=== PATIENT | female | born 2005 | race Two or more races ===

== ENCOUNTER 2023-09-30 12:32 | Emergency (ER) | payer BC, OTHER, SELFPAY ==
--- NOTE | ~2023-09-30 | US_ITS ---
EXAMINATION: US right lower quadrant abdomen CLINICAL INFORMATION: Right lower quadrant pain rule out appendicitis. COMPARISON: None available at the time of this dictation. TECHNIQUE: Curvilinear transducer ultrasound utilized, area of interest scanned, abdomen right lower quadrant FINDINGS: Blind loop bowel likely appendix found in the right lower quadrant measuring 0.3 x 0.5 cm normal in diameter. No evidence of rebound tenderness to suggest appendicitis. US/US appendix IMPRESSION: * No ultrasound evidence of appendicitis. Probably a normal appendix identified. * If there is high index of suspicion for appendicitis, May consider correlation with follow-up MRI.
--- NOTE | ~2023-09-30 | US_ITS ---
EXAMINATION: US OBSTETRICAL PELVIC AND TRANSVAGINAL CLINICAL INFORMATION: Right lower quadrant abdominal and pelvic pain with nausea and vomiting. Beta-hCG of 43,719 COMPARISON: None available. LMP: Uncertain. TECHNIQUE: Real-time ultrasound scanning of the pelvis is acquired via transabdominal and transvaginal approach. FINDINGS: Uterus is anteverted. There is a single intrauterine gestational sac with visible yolk sac, embryo, and embryonic cardiac activity. There is no significant subchorionic hemorrhage or hematoma. Embryo HR: 113 beats per minute. CRL (crown rump length): 0.2 cm (5 weeks 6 days +/- 4 days). NABILA (estimated date of delivery): 05/26/2024 +/- 4 days. MATERNAL ADNEXA: The right maternal ovary measures 3.4 x 2 x 2.2 cm. Normal-appearing the right intraovarian arterial and venous blood flow is documented on spectral Doppler evaluation. The left maternal ovary measures 2.8 x 2.6 x 1.8 cm. Normal-appearing left intraovarian arterial and venous blood flow is documented on spectral Doppler evaluation. There is no significant maternal adnexal mass. No maternal pelvic ascites. US/US OB pelvic and transvaginal IMPRESSION: 1. Single intrauterine gestation with ultrasound gestational age of 5 weeks 6 days +/- 4 days. 2. Estimated date of delivery is 05/26/2024 +/- 4 days. 3. No maternal adnexal mass or pelvic ascites. 4. No sonographic evidence of active ovarian torsion. No sonographic evidence of ectopic . Recommend clinical follow-up as appropriate. Recommend follow-up ultrasound to ensure normal progression of the .
--- NOTE | ~2023-09-30 | US_ITS ---
EXAMINATION: US OBSTETRICAL PELVIC AND TRANSVAGINAL CLINICAL INFORMATION: Right lower quadrant abdominal and pelvic pain with nausea and vomiting. Beta-hCG of 43,719 COMPARISON: None available. LMP: Uncertain. TECHNIQUE: Real-time ultrasound scanning of the pelvis is acquired via transabdominal and transvaginal approach. FINDINGS: Uterus is anteverted. There is a single intrauterine gestational sac with visible yolk sac, embryo, and embryonic cardiac activity. There is no significant subchorionic hemorrhage or hematoma. Embryo HR: 113 beats per minute. CRL (crown rump length): 0.2 cm (5 weeks 6 days +/- 4 days). NABILA (estimated date of delivery): 05/26/2024 +/- 4 days. MATERNAL ADNEXA: The right maternal ovary measures 3.4 x 2 x 2.2 cm. Normal-appearing the right intraovarian arterial and venous blood flow is documented on spectral Doppler evaluation. The left maternal ovary measures 2.8 x 2.6 x 1.8 cm. Normal-appearing left intraovarian arterial and venous blood flow is documented on spectral Doppler evaluation. There is no significant maternal adnexal mass. No maternal pelvic ascites. US/US pelvic ovarian doppler IMPRESSION: 1. Single intrauterine gestation with ultrasound gestational age of 5 weeks 6 days +/- 4 days. 2. Estimated date of delivery is 05/26/2024 +/- 4 days. 3. No maternal adnexal mass or pelvic ascites. 4. No sonographic evidence of active ovarian torsion. No sonographic evidence of ectopic . Recommend clinical follow-up as appropriate. Recommend follow-up ultrasound to ensure normal progression of the .
--- NOTE | ~2023-09-30 | MR_ITS ---
EXAMINATION: MR ABDOMEN WITHOUT CONTRAST CLINICAL INFORMATION: Right lower quadrant pain. . Assess for appendicitis COMPARISON: Prior studies including the ultrasound of the appendix earlier today TECHNIQUE: MR abdomen is performed on a high-field 1.5 Yue MRI. MR compatible with marker was placed in the region the patient's pain approximately 7 cm below the umbilicus in the midline over the suprapubic region. Contrast was not utilized and the setting. Examination is tailored to evaluate the lower abdomen and pelvis. FINDINGS: LUNG BASES: The visualized lung bases are unremarkable. LIVER, GALLBLADDER, AND BILIARY TREE: The liver is normal in size, smooth in contour, and normal in signal. No focal hepatic lesion or biliary ductal dilatation is present. The gallbladder is unremarkable with no evidence of gallbladder wall thickening, or obvious pericholecystic inflammatory changes. PANCREAS: Unremarkable. SPLEEN: Visualized portion of the spleen is unremarkable ADRENAL GLANDS: Unremarkable. KIDNEYS AND URETERS: The kidneys are normal in size and shape. No hydronephrosis. No perinephric stranding. GASTROINTESTINAL TRACT: No bowel obstruction. Appendix is not able to be delineated on the study but I do not appreciate any focal inflammatory changes in the expected periappendiceal region. Normal-appearing appendix was suggested on the ultrasound from earlier today. No ascites or fluid collection. ABDOMINAL WALL: No significant hernia is appreciated. OSSEOUS STRUCTURES: Marrow signal normal. There is a convex left lumbar curve with partially visualized compensatory convex right thoracic curve. PELVIC ORGANS: The gravid uterus is anteroverted with a prominent decidual reaction as well as a T2 bright gestational sac. Fine detail was better delineated on the dedicated pelvic ultrasound from earlier today. pole is not able to be delineated on MR. There are multiple prominent transient T2 dark contractions seen. These change in morphology and location throughout the myometrium throughout the study consistent with prominent uterine contractions. MR/MR abdomen wo con IMPRESSION: 1. Appendix is not able to be delineated on the study but I do not appreciate any focal inflammatory changes in the expected periappendiceal region. 2. Gravid uterus with decidual reaction and a small T2 bright gestational sac. Fine detail was better delineated on the dedicated pelvic ultrasound from earlier today. The main finding of note is prominent transient uterine myometrial contractions seen throughout the examination. These contractions change in morphology and location within the myometrium throughout the study. These prominent contractions could be a cause of patient discomfort and the patient marked her area of pain along the anterior abdominal wall just anterior to the megha uterus.
[2023-09-30 12:47] VITALS: BP 132/92; PULSE 85; RESP 18; TEMP 36.6; O2SAT 100; BMI 17.3
--- NOTE | 2023-09-30 12:57 | ED_ITS ---
HPI - General Adult General Chief complaint: Abdominal Pain Stated complaint: Lower abd pain Time Seen by Provider: 09/30/23 12:57 Source: patient Mode of arrival: ambulatory Limitations: no limitations History of Present Illness HPI narrative: 18 year old female presents with fatigue, malaise, subjective fevers and chills, severe lower abdominal discomfort for the past 2 days worsening started as a boring pain now severe and constant. Patient reports abdominal pain is a greater than 10/10, worse on the right side she appears very uncomfortable. Not tolerating much by mouth. Patient reports this is some of the worst pain she has had. She reports irregular periods last menstrual cycle was about a month ago, not on control, does not know she is . Denies chest pain, shortness of breath, changes in urination or bowel habits. Related Data Previous Rx's Medication Instructions Recorded doxylamine 10 mg-pyridoxine (vit 1 tab PO BID PRN nausea and 09/30/23 B6) 10 mg tablet,delayed release vomiting #30 tabs (Diclegis) Allergies Allergy/AdvReac Type Severity Reaction Status Date / Time No Known Allergies Allergy Verified 09/30/23 12:43 Review of Systems 2 Review of Systems: Constitutional : No Weight loss, + Fever, + Chills, + Fatigue, + Malaise ENT/Mouth : No sore throat, No Rhinorrhea Eyes: No Eye Pain, No Swelling, No Redness Cardiovascular : No Chest Pain, No SOB, No Dyspnea on Exertion, No Orthopnea, No Edema, No Palpitations Respiratory : No Cough, No Sputum, No Wheezing Gastrointestinal : + Nausea, No Vomiting, No Diarrhea, No Constipation, + abdominal Pain, No Hematochezia, No Melena Genitourinary : No Dysuria, No Urinary Frequency, No Hematuria, Musculoskeletal : No joint pain, No Myalgias, No Joint Swelling Skin : No Skin Lesions, No rash Neuro : No Weakness, No Numbness, No Dizziness, No Headache Psych : No Anxiety/Panic, No Depression All other systems reviewed and are negative Yes all other systems are reviewed and are negative [facility] Past Medical History Attestation statement: The following information was validated with the patient. Source: old records reviewed and nursing notes reviewed Medical History No pertinent past medical history Physical Exam ED Vital Signs: Vital Signs - 24 hr 09/30/23 13:51 09/30/23 15:27 09/30/23 15:52 Temperature 98.4 F 98.3 F 98.1 F Pulse Rate 83 93 79 Respiratory Rate 16 18 16 Blood Pressure 139/89 123/87 108/88 Pulse Oximetry 96 97 97 Oxygen Delivery Method Room Air Room Air Room Air 09/30/23 18:22 Temperature Pulse Rate 68 Respiratory Rate 18 Blood Pressure 110/54 L Pulse Oximetry 100 Oxygen Delivery Method Room Air BMI result Body Mass Index 17.3 Vital signs stable Appearance: Alert.? Oriented X3.? No acute distress.? Head: Normocephalic, atraumatic, no step-offs or deformities Eyes: Pupils equal, round and reactive to light.? ENT: Pharynx normal.? Neck: Normal inspection.? Neck supple.? CVS: Normal heart rate and rhythm.? Pulses normal.? Respiratory: No respiratory distress.? Breath sounds normal.? Abdomen: Soft and significant lower abdominal tenderness to palpation however the there is diffuse tenderness with rebound. And guarding. Normoactive bowel sounds. Patient appears uncomfortable Skin: Skin warm and dry.? Normal skin color.? Normal skin turgor.? Extremities: No lower extremity edema.? No calf ttp. 5/5 strength to bilateral upper and lower extremities Back: No midline tenderness, no C-spine tenderness, full range of motion, no CVA tenderness bilaterally Neuro: Oriented X 3.? No motor deficit.? No sensory deficit. CN 2-12 intact Course Course Course Narrative: RME: 18 yold female presents to the ED for lower abdominal pain sinc yesterday with nuasea and vomitting. positive bialteral lower abdomial tenderness. patient brought to the ED immeidatley to BED 14. possible surgical belly ectopic pregancy and tubo ovaryn torsions Reevaluation(s) Reevaluation #1: CBC with leukocytosis 11.9, no left shift. Chemistry no acute electrolyte abnormalities requiring intervention lactic acid of 3.1, will give 30 cc/kilos bolus as well as ceftriaxone. Beta hCG noted to be 43,719 this is concerning for ectopic bedside ultrasound unable to visualize free fluid which lower suspicion for ruptured ectopic. Time: 14:00 Reevaluation #2: Reevaluation patient still with exquisite tenderness to RLQ + . Lactic acid improved. Spoke to both Dr. Cristiana PALACIO and my attending Dr. Ellis about this case MRI is needed at this time to ensure this is not an appendicitis causing patients pain. Patient aware of plan. MRI oncall contacted. Time: 16:57 Reevaluation #3: Sign out to Edgar DAVIES Time: 17:01 Additional Reevaluation(s): Patient received in sign-out at change of shift pending MRI which shows no evidence of focal inflammatory change around the appendix. There is no other acute pathologic findings with the exception of a megha uterus which is likely causing the patient's pain. I discussed with Dr. Zendejas who agrees with discharge the patient remains pain-free. I discussed all these findings with the patient as well. 7:30 p.m. patient passed p.o. challenge, stable for discharge. She was encouraged to return for any abnormal vaginal bleeding or worsening pain Medications Administered Discontinued Medications Generic Name Dose Route Start Last Admin Trade Name Freq PRN Reason Stop Dose Admin Sodium Chloride 1,368 mls @ 1,368 mls/hr 09/30/23 13:23 09/30/23 15:25 Ns 30 ml/kg infuse over 1 hr (1368 ml) 09/30/23 14:22 Infused IV Infusion .Q1H STA Ceftriaxone Sodium 1 gm/ 50 mls @ 100 mls/hr 09/30/23 13:23 09/30/23 14:08 Sodium Chloride IV 09/30/23 13:52 Infused ONCE ONE Infusion Morphine Sulfate 4 mg 09/30/23 13:28 09/30/23 13:38 Morphine Sulfate 4 Mg/Ml Cartridge IVPUSH 09/30/23 13:29 4 mg ONCE ONE Administration Protocol Ondansetron HCl 4 mg 09/30/23 18:47 09/30/23 18:57 Ondansetron Hcl 4 Mg/2 Ml Vial IVPUSH 09/30/23 18:48 4 mg ONCE ONE Administration Medical Decision Making Medical Decision Making [facility] Narrative: 1324 18-year-old female presents with complaints of severe lower abdominal pain for the past 2 days with associated nausea however no vomiting. Last menstrual period about a month ago has regular periods. Unclear she has preg Physical exam significant lower abdominal tenderness to palpation however the there is diffuse tenderness with rebound. And guarding. Normoactive bowel sounds. Patient appears uncomfortable Concerns for acute abdomen versus ectopic versus toward. Will rule out appendicitis, cholecystitis, kidney stone, UTI and metabolic derangements At this time infection suspected, will initiate septic protocol will obtain labs, blood cultures, lactic will give a 30 cc/kilos bolus and give ceftriaxone empirically. Differential Diagnosis Differential Diagnoses: The differential diagnosis associated with the presentation includes Concerns for acute abdomen versus ectopic versus toward. Will rule out appendicitis, cholecystitis, kidney stone, UTI and metabolic derangements Admission/Observation Consideration of admission/observation: Escalation of care including admission/observation considered Likely Consult Healthcare Provider Management of the patient was discussed with: Hospitalist and Talent Acquisition Associate Lab Data MDM Lab Attestation statement: I reviewed the patient's lab results. 09/30/23 13:33 09/30/23 13:00 Labs: Lab Results 09/30/23 09/30/23 09/30/23 Range/Units 13:00 13:33 13:55 WBC 11.9 H (4.8-10.8) X10*3/uL RBC 4.48 (4.20-5.50) X10*6/uL Hgb 12.7 (12.0-16.0) g/dl Hct 36.9 L (37.0-47.0) % MCV 82.4 (80.0-98.0) fL MCH 28.3 (27.0-33.0) pg MCHC 34.4 (31.0-35.0) g/dl RDW 13.7 (11.0-16.0) % Plt Count 275 (160-400) X10*3/uL MPV 9.4 (9.4-12.3) fL Immature Gran % (Auto) 0.5 H (0.0-0.4) % Neut % (Auto) 70.4 (45-73) % Lymph % (Auto) 18.0 L (20-40) % [place] % (Auto) 10.5 (2-11) % Eos % (Auto) 0.3 (0-4) % Baso % (Auto) 0.3 (0-2) % Lymph # (Auto) 2.1 (1.2-4.9) X10*3/uL [place] # (Auto) 1.3 H (0.1-1.2) X10*3/uL Eos # (Auto) 0.0 (0.0-0.4) X10*3/uL Baso # (Auto) 0.0 (0.0-0.2) X10*3/uL Abs Immat Gran (auto) 0.06 H (0.00-0.03) X10*3/uL Absolute Neuts (auto) 8.4 H (2.0-8.3) x10*3/uL Absolute Nucleated RBC 0.000 (0.0-0.012) X10*3/uL Nucleated RBC % (auto) 0.0 (0.0-0.2) /100WBC Sodium 137 (135-145) mmol/L Potassium 3.8 (3.3-5.1) mmol/L Chloride 105 (96-108) mmol/L Carbon Dioxide 18 L (22-29) mmol/L Anion Gap 18 (12-20) BUN 8 L (9-16) mg/dL Creatinine 0.75 (0.5-1.4) mg/dL Estim Creat Clear Calc 86.1 Estimated GFR > 60 Random Glucose 90 (60-115) mg/dL Lactic Acid 3.1 H* (0.5-2.0) mmol/L Lactic Acid F/U @ 2Hr (0.5-2.0) mmol/L Calcium 10.1 (8.4-10.2) mg/dL Total Bilirubin 0.7 (0.0-1.0) mg/dL AST 20 (5-31) U/L ALT 15 (0-31) U/L Alkaline Phosphatase 53 (39-117) U/L Total Protein 8.3 H (6.5-8.0) g/dL Albumin 4.8 (3.5-5.0) g/dL Lipase 15 (8-78) U/L Beta HCG, Quant 73088 mIU/mL Urine Color Dark Yellow Urine Appearance Clear Urine pH 5.5 (5.0-9.0) Ur Specific [place] >= 1.030 H (1.005-1.025) Urine Protein Trace (Neg-Trace) mg/dL Urine Glucose (UA) Negative (Negative) mg/dL Urine Ketones 80 (Negative) mg/dL Urine Blood Negative (Negative) Urine Nitrite Negative (Negative) Ur Leukocyte Esterase Negative (Negative) Urine Test POSITIVE H (NEGATIVE) Ethyl Alcohol < 10 mg/dL 09/30/23 Range/Units 15:32 WBC (4.8-10.8) X10*3/uL RBC (4.20-5.50) X10*6/uL Hgb (12.0-16.0) g/dl Hct (37.0-47.0) % MCV (80.0-98.0) fL MCH (27.0-33.0) pg MCHC (31.0-35.0) g/dl RDW (11.0-16.0) % Plt Count (160-400) X10*3/uL MPV (9.4-12.3) fL Immature Gran % (Auto) (0.0-0.4) % Neut % (Auto) (45-73) % Lymph % (Auto) (20-40) % [place] % (Auto) (2-11) % Eos % (Auto) (0-4) % Baso % (Auto) (0-2) % Lymph # (Auto) (1.2-4.9) X10*3/uL [place] # (Auto) (0.1-1.2) X10*3/uL Eos # (Auto) (0.0-0.4) X10*3/uL Baso # (Auto) (0.0-0.2) X10*3/uL Abs Immat Gran (auto) (0.00-0.03) X10*3/uL Absolute Neuts (auto) (2.0-8.3) x10*3/uL Absolute Nucleated RBC (0.0-0.012) X10*3/uL Nucleated RBC % (auto) (0.0-0.2) /100WBC Sodium (135-145) mmol/L Potassium (3.3-5.1) mmol/L Chloride (96-108) mmol/L Carbon Dioxide (22-29) mmol/L Anion Gap (12-20) BUN (9-16) mg/dL Creatinine (0.5-1.4) mg/dL Estim Creat Clear Calc Estimated GFR Random Glucose (60-115) mg/dL Lactic Acid (0.5-2.0) mmol/L Lactic Acid F/U @ 2Hr 1.4 (0.5-2.0) mmol/L Calcium (8.4-10.2) mg/dL Total Bilirubin (0.0-1.0) mg/dL AST (5-31) U/L ALT (0-31) U/L Alkaline Phosphatase (39-117) U/L Total Protein (6.5-8.0) g/dL Albumin (3.5-5.0) g/dL Lipase (8-78) U/L Beta HCG, Quant mIU/mL Urine Color Urine Appearance Urine pH (5.0-9.0) Ur Specific [place] (1.005-1.025) Urine Protein (Neg-Trace) mg/dL Urine Glucose (UA) (Negative) mg/dL Urine Ketones (Negative) mg/dL Urine Blood (Negative) Urine Nitrite (Negative) Ur Leukocyte Esterase (Negative) Urine Test (NEGATIVE) Ethyl Alcohol mg/dL Independent Interpretation I performed an independent interpretation of an: CT Scan Radiology Impression Discussion of test interpretation with radiology: I have reviewed the radiologist's reading. Critical Care Time Critical Care Time Critical Care Time: Yes Total Critical Care Time: 45 Attestation: I attest to this time spent taking care of the patient, obtaining history, physical, reviewing labs, imaging, speaking to my attending, speaking to specialist. Discharge Plan Discharge Clinical Impression: Abdominal pain, Nausea, Abdominal pain during intrauterine , Elevated serum hCG Patient Disposition: Home, Self-Care Instructions: Abdominal Pain in (ED) Additional Instructions: Your workup in the emergency department today was reassuring You are approximately 6 weeks and 4 days . You should begin taking vitamins You should use Tylenol for pain. You may use Diclegis as needed for vomiting Return for new or worsening symptoms, especially develop any worsening pain or vaginal bleeding You may call [facility] at the number provided to schedule follow-up Prescriptions: New doxylamine-pyridoxine (vit B6) [Diclegis] 10-10 mg tablet,delayed release (DR/EC) 1 tab PO BID PRN (Reason: nausea and vomiting) Qty: 30 0RF Interventions: ED Discharge Assessment Last Done: 09/30/23 19:51 Discharge Date/Time: 09/30/23 19:52
[2023-09-30 13:24] LABS: Lactic Acid 3.1 mmol/L (0.5-2.0)
[2023-09-30 13:29] LABS: Alanine Aminotransferase 15 U/L (0-31); Albumin Level 4.8 g/dL (3.5-5.0); Alkaline Phosphatase 53 U/L (39-117); Anion Gap 18 (12-20); Aspartate Amino Transferase 20 U/L (5-31); Bilirubin Total 0.7 mg/dL (0.0-1.0); Blood Urea Nitrogen 8 mg/dL (9-16); Calcium 10.1 mg/dL (8.4-10.2); Carbon Dioxide 18 mmol/L (22-29); Chloride 105 mmol/L (96-108); Creatinine Clr Calc Pharmacy 86.1; Estimated Glomerular Filt Rate > 60; Glucose Random 90 mg/dL (60-115); Lipase 15 U/L (8-78); Potassium 3.8 mmol/L (3.3-5.1); Sodium 137 mmol/L (135-145); Total Protein 8.3 g/dL (6.5-8.0)
[2023-09-30] MEDS: SODIUM CHLORIDE 1368 ML IV (13:34)
[2023-09-30] MEDS: Morphine Sulfate 4 MG/ML CARTRIDGE IVPUSH (13:38)
[2023-09-30] MEDS: cefTRIAXone sodium 1 GM in 0.9 % Sodium Chloride 50 ML IV (13:38)
[2023-09-30 13:39] LABS: Basophils Percent Auto 0.3 % (0-2); Eosinophils Percent Auto 0.3 % (0-4); Hematocrit 36.9 % (37.0-47.0); Hemoglobin 12.7 g/dl (12.0-16.0); Imm Gran Abs Auto 0.06 X10*3/uL (0.00-0.03); Imm Gran Pct Auto 0.5 % (0.0-0.4); Lymphocytes Absolute Auto 2.1 X10*3/uL (1.2-4.9); Mean Corpuscular HGB Conc 34.4 g/dl (31.0-35.0); Mean Corpuscular Hemoglobin 28.3 pg (27.0-33.0); Mean Corpuscular Volume 82.4 fL (80.0-98.0); Mean Platelet Volume 9.4 fL (9.4-12.3); Monocytes Absolute Auto 1.3 X10*3/uL (0.1-1.2); Monocytes Percent Auto 10.5 % (2-11); Neutrophils Absolute Auto 8.4 x10*3/uL (2.0-8.3); Neutrophils Percent Auto 70.4 % (45-73); Platelet Count 275 X10*3/uL (160-400); Red Blood Count 4.48 X10*6/uL (4.20-5.50); Red Cell Distribution Width 13.7 % (11.0-16.0); White Blood Count 11.9 X10*3/uL (4.8-10.8)
[2023-09-30 13:51] VITALS: BP 139/89; PULSE 83; RESP 16; TEMP 36.9; O2SAT 96
--- NOTE | 2023-09-30 14:04 | PC.NURSE ---
patient a&ox3, iv inserted, labs drawn in triage, second set of blood cultures drawn at bedside when pt was brought to the room, sepsis protocol initiated- pt lactic elevated, white count elevated, IVF running per order, iv antibiotics running per order, urine obtained, provider at bedside doing bedside US while awaiting for radiology. pt given morphine for 10/10 pain which she stated went down to 3/10 pain, vitals stable, call roman within reach, will continue to monitor.
[2023-09-30 14:12] LABS: Appearance Urine Clear; Color Urine Dark Yellow; Glucose Urine UA Negative (Negative); Leukocyte Esterase Urine Negative (Negative); Nitrite Urine Negative (Negative); PH 5.5 (5.0-9.0); Specific Gravity - Urine >= 1.030 (1.005-1.025); Urine Blood Negative (Negative); Urine Ketones 80 mg/dL (Negative); Urine Protein Trace mg/dL (Neg-Trace)
[2023-09-30 14:14] LABS: UPreg QC Valid YES; Urine Pregnancy POSITIVE (NEGATIVE)
--- NOTE | 2023-09-30 14:25 | PC.NURSE ---
pt to ultrasound
[2023-09-30 15:05] LABS: Reflex Lactate? Lactic Acid Added
--- NOTE | 2023-09-30 15:26 | PC.NURSE ---
pt returned from ultrasound IVF just finishing
[2023-09-30 15:27] VITALS: BP 123/87; PULSE 93; RESP 18; TEMP 36.8; O2SAT 97
--- NOTE | 2023-09-30 15:39 | PC.NURSE ---
repeat lactic sent to lab
[2023-09-30 15:51] LABS: ~Lactic Acid-LAB USE ONLY 1.4 mmol/L (0.5-2.0)
[2023-09-30 15:52] VITALS: BP 108/88; PULSE 79; RESP 16; TEMP 36.7; O2SAT 97
--- NOTE | 2023-09-30 15:52 | PC.NURSE ---
patient a&ox3, vss, pt states pelvic pain has remained around a 3, pt requesting PO of gingerale, Dr. Jefferson stated she was able to have po now, pt given gingerale, family at bedside call roman within reach, will continue to mointor
[2023-09-30 16:27] LABS: Ethanol < 10 mg/dL
[2023-09-30 18:22] VITALS: BP 110/54; PULSE 68; RESP 18; O2SAT 100
[2023-09-30] MEDS: ondansetron HCL 4 MG/2 ML VIAL IVPUSH (18:57)
--- NOTE | 2023-09-30 19:30 | PM.GYNCN ---
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 LMP unknown?. No vaginal bleeding nausea or vomiting or other GI or symptoms. Initial lactic acid was 3.1 down to 1.3 after IV hydration ceftriaxone. H&H within normal. Urine test positive hCG was 43,719. The patient on arrival received a dose of morphine since then has been pain free. cc:: CC: OB [facility] Past Medical History Medical History No pertinent past medical history Social History Social History Smoked in Last 30 Days: No Use of substances other than those prescribed or required for medical reasons: No Advance Directives: No Meds Allergies Allergy/AdvReac Type Severity Reaction Status Date / Time No Known Allergies Allergy Verified 09/30/23 12:43 [employer] Physical Exam Vitals Vital signs: Temp Pulse Resp BP Pulse Ox O2 Del Method 98.1 F 68 18 110/54 L 100 Room Air 09/30/23 15:52 09/30/23 18:22 09/30/23 18:22 09/30/23 18:22 09/30/23 18:22 09/30/23 18:22 BMI result Body Mass Index 17.3 Additional Comments: Initial examination by Brooklyn Friedman at 14:00 reported as positive for right lower quadrant tenderness with rebound and guarding Repeat exam at 07:[address] Farr: Reported to be no tenderness on exam no guarding or rebound [employer] REPA[employer] - Results Labs 09/30/23 13:33 09/30/23 13:00 Labs: Short CBC 09/30/23 Range/Units 13:33 WBC 11.9 H (4.8-10.8) X10*3/uL Hgb 12.7 (12.0-16.0) g/dl Hct 36.9 L (37.0-47.0) % Plt Count 275 (160-400) X10*3/uL BMP 09/30/23 13:00 Sodium 137 Potassium 3.8 Chloride 105 Carbon Dioxide 18 L BUN 8 L Creatinine 0.75 Calcium 10.1 Liver Function 09/30/23 Range/Units 13:00 Total Bilirubin 0.7 (0.0-1.0) mg/dL AST 20 (5-31) U/L ALT 15 (0-31) U/L Alkaline Phosphatase 53 (39-117) U/L Albumin 4.8 (3.5-5.0) g/dL Urine 09/30/23 Range/Units 13:55 Urine Color Dark Yellow Urine Appearance Clear Urine pH 5.5 (5.0-9.0) Ur Specific [place] >= 1.030 H (1.005-1.025) Urine Protein Trace (Neg-Trace) mg/dL Urine Glucose (UA) Negative (Negative) mg/dL Urine Test POSITIVE H (NEGATIVE) Imaging CT scan - pelvis: Radiologist's impression: ITS Impressions Appendix Ultrasound 09/30/23 15:30 IMPRESSION: * No ultrasound evidence of appendicitis. Probably a normal appendix identified. * If there is high index of suspicion for appendicitis, May consider correlation with follow-up MRI. Doppler Study Ultrasound 09/30/23 15:30 IMPRESSION: 1. Single intrauterine gestation with ultrasound gestational age of 5 weeks 6 days +/- 4 days. 2. Estimated date of delivery is 05/26/2024 +/- 4 days. 3. No maternal adnexal mass or pelvic ascites. 4. No sonographic evidence of active ovarian torsion. No sonographic evidence of ectopic . Recommend clinical follow-up as appropriate. Recommend follow-up ultrasound to ensure normal progression of the . Pelvic/Transvag US 09/30/23 15:30 IMPRESSION: 1. Single intrauterine gestation with ultrasound gestational age of 5 weeks 6 days +/- 4 days. 2. Estimated date of delivery is 05/26/2024 +/- 4 days. 3. No maternal adnexal mass or pelvic ascites. 4. No sonographic evidence of active ovarian torsion. No sonographic evidence of ectopic . Recommend clinical follow-up as appropriate. Recommend follow-up ultrasound to ensure normal progression of the . Abdomen MRI 09/30/23 18:15 IMPRESSION: 1. Appendix is not able to be delineated on the study but I do not appreciate any focal inflammatory changes in the expected periappendiceal region. 2. Gravid uterus with decidual reaction and a small T2 bright gestational sac. Fine detail was better delineated on the dedicated pelvic ultrasound from earlier today. The main finding of note is prominent transient uterine myometrial contractions seen throughout the examination. These contractions change in morphology and location within the myometrium throughout the study. These prominent contractions could be a cause of patient discomfort and the patient marked her area of pain along the anterior abdominal wall just anterior to the megha uterus. Assessment and Plan (1) Early stage of : Status: Acute Since ultrasound showed live IUP, with no adnexal masses or abnormal bilateral ovarian vascular flow, the patient is not having pelvic pain or vaginal bleeding any more, I recommend for the patient to follow-up with her OBGYN regarding her . vitamin 1 tablet p.o. q.d.. SAB warnings to be given to patient, she is to call or come back to emergency room in case of pelvic pain and/or cramps or bleeding (2) Abdominal pain: Status: Acute Refer to the emergency room team the management of the patient's abdominal pain. I spent a total of 20 minutes reviewing the chart, communicating to the emergency room provider and documenting in the medical record
== END 2023-09-30 19:52 | disposition home or self-care (01) ==
PROVIDERS: Physician Assistant; Emergency Provider Emergency Medicine
DX: O21.0 Mild hyperemesis gravidarum (principal); R10.2 Pelvic and perineal pain; R10.31 Right lower quadrant pain; Z3A.01 Less than 8 weeks gestation of pregnancy; Z79.899 Other long term (current) drug therapy
CPT/HCPCS: 36415; 74181; 76705; 76801; 76817; 80053; 80307; 81003; 81025; 83605; 83690; 84702; 85025; 87040; 93975; 96365; 96366; 96375; 99284; 99285; J0696; J2270; J2405

== ENCOUNTER → 2023-09-30 13:02 | Outpatient (BNV) | payer BC, SELFPAY | PROVIDERS: Emergency Provider Emergency Medicine; Visit Provider Obstetrics & Gynecology | DX: Z34.90 Encounter for supervision of normal pregnancy, unspecified, unspecified trimester (principal); R10.9 Unspecified abdominal pain | CPT/HCPCS: 99283 ==

== ENCOUNTER 2023-10-05 09:04 | Emergency (ER) | payer BC, OTHER, SELFPAY ==
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
[2023-10-05 09:20] VITALS: BP 172/91; PULSE 116; RESP 22; TEMP 36.8; O2SAT 98; BMI 20.1
--- NOTE | 2023-10-05 10:12 | MHC.CARE ---
CARE Team and Security meets with pt that had recently arrived in the ED.? Pt was escalating and refusing to change, had climbed on the half wall by the sink and was refusing to climb down.? Pt was acting in a threatening manner towards staff present.? CARE Team and security counseled pt who agreed to climb down from the half wall and change out of her onesie and into hospital pants and socks.? Pt was allowed to keep her turtleneck if she agreed to submit to a hand wanding of her person.? Security conducted the wanding with negative findings.
[2023-10-05 10:25] LABS: MANUAL DIFF FLAG NO
[2023-10-05 10:28] LABS: Appearance Urine Cloudy; Basophils Percent Auto 0.4 % (0-2); Color Urine Yellow; Eosinophils Percent Auto 0.4 % (0-4); Glucose Urine UA Negative (Negative); Hematocrit 36.8 % (37.0-47.0); Hemoglobin 12.5 g/dl (12.0-16.0); Imm Gran Abs Auto 0.04 X10*3/uL (0.00-0.03); Imm Gran Pct Auto 0.4 % (0.0-0.4); Leukocyte Esterase Urine Negative (Negative); Lymphocytes Absolute Auto 1.7 X10*3/uL (1.2-4.9); Lymphocytes Percent Auto 16.4 % (20-40); Mean Corpuscular Hemoglobin 28.4 pg (27.0-33.0); Mean Corpuscular Volume 83.6 fL (80.0-98.0); Mean Platelet Volume 9.6 fL (9.4-12.3); Monocytes Absolute Auto 0.9 X10*3/uL (0.1-1.2); Monocytes Percent Auto 8.8 % (2-11); Neutrophils Absolute Auto 7.7 x10*3/uL (2.0-8.3); Neutrophils Percent Auto 73.6 % (45-73); Nitrite Urine Negative (Negative); PH 5.5 (5.0-9.0); Platelet Count 272 X10*3/uL (160-400); Red Cell Distribution Width 13.7 % (11.0-16.0); Specific Gravity - Urine >= 1.030 (1.005-1.025); UMIC TRIGGER UACC YES; Urine Blood Negative (Negative); Urine Ketones Negative (Negative); Urine Protein 100 (2+) mg/dL (Neg-Trace); White Blood Count 10.4 X10*3/uL (4.8-10.8)
[2023-10-05 10:35] LABS: Amphetamine Screen Urine Not Detected (Not Detect); Barbiturates, Urine Not Detected (Not Detect); Benzodiazepines Screen Urine Not Detected (Not Detect); Cannabinoid Screen Urine POSITIVE (Not Detect); Cocaine Screen Urine Not Detected (Not Detect); Fentanyl, urine Not Detected (Not Detect); Opiate Screen Urine Not Detected (Not Detect); Phencyclidine Screen Urine Not Detected (Not Detect)
[2023-10-05 10:39] LABS: COVID-19 Test Negative (Negative); IDNOW Serial# 08D9AD1C
[2023-10-05 10:40] LABS: Bacteria Urine 4+ (None Seen); Squamous Epithelial Cell Urine >20 /HPF (0-2); UACC Culture Trigger YES; WBC Urine 21-50 /HPF (0-5)
[2023-10-05 10:46] LABS: Alanine Aminotransferase 20 U/L (0-31); Albumin Level 4.4 g/dL (3.5-5.0); Alkaline Phosphatase 49 U/L (39-117); Anion Gap 10 (12-20); Aspartate Amino Transferase 26 U/L (5-31); Bilirubin Direct < 0.2 mg/dL (0.0-0.5); Bilirubin Total 0.2 mg/dL (0.0-1.0); Blood Urea Nitrogen 12 mg/dL (9-16); Calcium 9.4 mg/dL (8.4-10.2); Carbon Dioxide 26 mmol/L (22-29); Chloride 107 mmol/L (96-108); Creatinine Clr Calc Pharmacy 91.7; Estimated Glomerular Filt Rate > 60; Glucose Random 78 mg/dL (60-115); Potassium 3.4 mmol/L (3.3-5.1); Sodium 140 mmol/L (135-145); Total Protein 7.4 g/dL (6.5-8.0)
[2023-10-05] MEDS: Acetaminophen 325 MG TABLET 650 MG PO (11:05)
--- NOTE | 2023-10-05 11:10 | PC.NURSE ---
Pt c/o painful lump behind right ear. aware
== END 2023-10-05 13:41 | disposition home or self-care (01) ==
PROVIDERS: Emergency Provider Emergency Medicine
DX: F33.1 Major depressive disorder, recurrent, moderate (principal); R45.851 Suicidal ideations; F43.22 Adjustment disorder with anxiety; Z20.822 Contact with and (suspected) exposure to COVID-19; Z11.52 Encounter for screening for COVID-19; Z79.899 Other long term (current) drug therapy
CPT/HCPCS: 80048; 80076; 80307; 81001; 84702; 85025; 87086; 87635; 99284; S9485

== ENCOUNTER 2025-10-02 00:40 | Emergency (ER) | payer OTHER, SELFPAY ==
--- OUTSIDE RECORDS SUMMARY | 2017-10-24 01:51 | XMS_ITS | Continuity of Care Document ---
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 [address] [facility] [place], [place], [id number], . tel:[phone] Family History Family Member Type Diagnosis Age At Onset No Information Payers Payer name Insurance type Covered democrat ID Authoriza tion(s) No Information Social History Type Description Quantity Date Captured Comments Sex Female Smoking Status No Information Chief Complaint And Reason For Visit No Information Reason For Referral Reason For Referral No Information History Of Present Illness Encounter Date Complaint History Of Prese nt Illness No Information Functional Status Date Functional Assessmen t No Information Instructions Date Instruction Additional Infor mation No Information Assessments Type Assessment Date No Information Patient Care Teams Name Effective Dates (start - stop) Status Members No Information
[2025-10-02 01:12] VITALS: BP 110/62; PULSE 96; RESP 16; TEMP 36.6; O2SAT 98; BMI 19.7
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
[2025-10-02 03:30] VITALS: BP 101/50; PULSE 85; RESP 18; O2SAT 97
[2025-10-02 03:45] VITALS: BP 105/56; PULSE 85; RESP 18; TEMP 36.6; O2SAT 97
== END 2025-10-02 04:14 | disposition home or self-care (01) ==
PROVIDERS: Emergency Provider Emergency Medicine
DX: S29.012A Strain of muscle and tendon of back wall of thorax, initial encounter (principal); V89.2XXA Person injured in unspecified motor-vehicle accident, traffic, initial encounter; Y93.9 Activity, unspecified; Y92.9 Unspecified place or not applicable
CPT/HCPCS: 99283; 99284